=== PATIENT | female | born 1990 | race African-American/Black ===

== ENCOUNTER → 2016-05-22 | Outpatient (CLI) | payer OTHER ==
[~2016-05-22] MED LIST: HYDR-5688 PO; IBUP-1050 PO; PRED50TA PO
== END | disposition home or self-care (01) ==
LOC: C.LAB 20:53
DX: Z02.83 Encounter for blood-alcohol and blood-drug test (principal)

== ENCOUNTER 2016-06-02 08:52 | Emergency (ER) | payer OTHER ==
[~2016-06-02] VITALS: Ht 170.2 cm; Wt 84.8 kg
[~2016-06-02 08:52] MED LIST changes: -PRED50TA PO
[2016-06-02 08:54] VITALS: TEMP 36.8; Ht 170.2 cm; Wt 84.8 kg
[2016-06-02] MEDS ORDERED: ALBUT/IPRATROP 3MG/0.5MG NEB 3 ML VIAL INH STA (09:24)
[2016-06-02] MEDS ORDERED: DEXAMETHASONE SOD INJ 10 MG/ML VIAL IM ONE (09:30)
--- NOTE | 2016-06-02 10:25 | DIAGNOSTIC IMAGING REPORT ---
CHEST 2 VIEWS ROUTINE CLINICAL HISTORY: Cough. Shortness of breath. COMPARISON STUDY: Chest radiograph February 27, 2016 per FINDINGS: Lung volumes are normal. No pneumothorax or pleural effusion is present. There is no consolidation. Cardiac size is normal. Mediastinal contours are normal. There is no evidence of pulmonary edema. IMPRESSION: No acute cardiopulmonary findings. Electronically signed by: Enoch Minor M.D. 06/02/2016 10:24 AM Dictated Date/Time: 06/02/2016 10:23 AM
[2016-06-02] MEDS ORDERED: ALBUTEROL HFA 8 GM INHALER INH STA (10:44)
[2016-06-02] MEDS ORDERED: PRED50TA PO (10:55)
--- NOTE | 2016-06-02 10:55 | EMERGENCY ROOM VISIT NOTE ---
History First contact with patient: 09:06 Chief Complaint: RESPIRATORY PROBLEMS Stated Complaint: CANNOT BREATH Nursing Triage Summary: yesterday hard time breathing. cough. mucus white and yellow. History of Present Illness The patient is a 26 year old female who presents to the Emergency Department by private vehicle for evaluation of her respiratory issues. She reports a history of asthma. She's not had any recent asthma exacerbations. Yesterday and last evening she noted some difficulty with breathing and some chest tightness. She ran out of her inhaler as her children had used the entire inhaler. She denies any chest pain, palpitations, hemoptysis, nausea, or vomiting. She reports this is consistent previous episodes of asthma exacerbation. She rates her current discomfort as a 5/10. She denies any headaches, dizziness, lightheadedness, nausea, vomiting, abdominal pain, or chance for . She denies any recent long distance travel, or family history of blood clots/bleeding disorders. She does use oral contraception. Communication was facilitated via Mongolian sign language via assistant media buyer. Review of Systems A complete 10-point Review of Systems was discussed with the patient, with pertinent positives and negatives listed in the History of Present Illness. All remaining Review of Systems questions can be considered negative unless otherwise specified. Past Medical/Surgical History Medical Problems: (1) Deaf (2) (3) Vaginal delivery Surgical Problems: (1) History of appendectomy Family History Not obtainable due to adoption Social History Smoking Status: Unknown if Ever Smoked Alcohol Use: none Drug Use: none Marital Status: single Housing Status: unknown Occupation Status: employed Allergies Coded Allergies: No Known Allergies (Verified , NONE, 02/27/16) Physical Exam Vital Signs Date Time Temp Pulse Resp B/P Pulse Ox O2 Delivery O2 Flow Rate FiO2 06/02/16 11:10 83 14 115/73 98 06/02/16 08:58 97 Room Air 06/02/16 08:54 36.8 98 18 115/73 95 Room Air Pain Rating (0-10): 5 Physical Exam VITAL SIGNS - Vital signs and nursing notes were reviewed. GENERAL - Well nourished, well developed 26-year-old female in no acute distress. Pt communicates well with provider and answers questions appropriately. SKIN - Without rash. HEAD - NC/AT with no obvious deformities. EYES - PERRL with EOMI bilaterally. Sclera without injection. Palpebral conjunctiva pink and moist. EARS - No deformities of external structures noted on gross examination bilaterally. No pain elicited with palpation of the tragus bilaterally. External auditory canals without discharge or otorrhea. Tympanic membranes pearly dubose without retraction or bulging. No fluid or purulent material visualized behind the TM. Handle of malleus, umbo, cone of light, pars tensa/ flaccid all easily visualized. NOSE - Midline and without cyanosis. No purulent drainage noted. Nasal mucosa without mucus discharge. MOUTH/OROPHARYNX - Without perioral cyanosis. Buccal mucosa pink and moist and without leukoplakia. Tongue midline with equal elevation of palate bilaterally. No tonsillar hypertrophy, erythema, or exudates noted. Good dentition noted. NECK - Neck with FROM. Supple to palpation. No lymphadenopathy noted. No nuchal rigidity. LUNGS - Chest wall symmetric without accessory muscle use, intercostals retractions, or central cyanosis. Normal vesicular breath sounds CTA B/L. Mild inspiratory wheezes noted. No rales or rhonchi appreciated. CARDIAC - RRR with S1/S2. No murmur, rubs, or gallops appreciated. ABDOMEN - Abdominal contour flat without pulsations or visible masses. BS normoactive all four quadrants. No tenderness, palpable masses, hepatosplenomegaly, or ascites noted. Medical Decision & Procedures ER Provider Diagnostic Interpretation: Radiological imaging and reports were reviewed by myself. Radiologist's Interpretation as follows: CHEST 2 VIEWS ROUTINE CLINICAL HISTORY: Cough. Shortness of breath. COMPARISON STUDY: Chest radiograph February 27, 2016 per FINDINGS: Lung volumes are normal. No pneumothorax or pleural effusion is present. There is no consolidation. Cardiac size is normal. Mediastinal contours are normal. There is no evidence of pulmonary edema. IMPRESSION: No acute cardiopulmonary findings. Medications Administered Medications (Trade) Dose Ordered Sig/Mirella Route Start Time Stop Time Status Last Admin Dose Admin Dexamethasone Sodium Phosphate (Decadron Inj) 10 mg NOW ONCE IM 06/02/16 09:30 06/02/16 09:31 DC 06/02/16 09:46 10 MG Albuterol/ Ipratropium (Duoneb) 3 ml NOW STAT INH 06/02/16 09:24 06/02/16 09:26 DC 06/02/16 09:46 3 ML Albuterol (Ventolin Hfa Inhaler) 2 puffs ONE STAT INH 06/02/16 10:44 06/02/16 10:45 DC 06/02/16 10:44 2 PUFFS ED Course Patient was seen and evaluated by myself. Labs were drawn, saline lock in place. The patient was treated with 10 mg Decadron intramuscularly and 1 DuoNeb. X-ray the chest was obtained. Imaging results as above. Patient was reevaluated and reports feeling much better at this time. Clinically, the patient's lungs are less wheezy and she feels much better reportedly. Imaging results were discussed with the patient who acknowledges entertaining. She was provided an albuterol inhaler for home. She was encouraged to follow-up with her primary care provider for continued management. She was educated on worrisome symptoms for return visit to the emergency department. Patient discharged home afebrile and in good condition. In the evaluation and treatment of this patient, the following differential diagnoses were considered: Viral URI, pneumonia, PE, pneumonitis, ACS, NM, cardiomyopathy, amongst others. Impression Primary Impression: Asthmatic bronchitis Departure Information Dispostion Home / Self-Care Condition GOOD Referrals No Doctor, Assigned (PCP) Patient Instructions Bronchitis Acute, My [facility] Additional Instructions You've been seen in the emergency department today for your bronchitis. Please use the albuterol inhaler 2 puffs every 4-6 hours for the next 3-4 days and then as needed for cough. You have been prescribed Prednisone 50 mg to be taken orally once a day for the next 4 days. This is an anti-inflammatory medicine to be used to help minimize your symptoms. You should take the COMPLETE course of the medication. Follow-up with your primary care provider from today's visit. Return for any changing or worsening symptoms. Problem Qualifiers Primary Impression: Asthmatic bronchitis Asthma severity: unspecified severity Asthma complication type: with acute exacerbation Qualified Codes: J45.901 - Unspecified asthma with (acute) exacerbation
[2016-06-02 11:10] VITALS: BP 115/73; PULSE 83; O2SAT 98
== END 2016-06-02 11:13 | disposition home or self-care (01) ==
LOC: C.EDB 08:53
DX: J45.909 Unspecified asthma, uncomplicated (principal)

== ENCOUNTER → 2016-06-12 | Outpatient (CLI) | payer OTHER | END | disposition home or self-care (01) | LOC: C.PAPS 14:38 | PROVIDERS: ATTEND Obstetrics & Gynecology | DX: Z12.4 Encounter for screening for malignant neoplasm of cervix (principal) ==